=== PATIENT | female | born 1950 | race Caucasian/White ===

== ENCOUNTER 2016-09-10 06:14 | Observation (INO) | payer MEDICARE, OTHER ==
[2016-09-09 15:46] LABS: BASOPHILS 0.8 %; BASOPHILS ABSOLUTE 0.05 10/3/uL (0.0-0.16); EOSINOPHILS 3.5 %; EOSINOPHILS ABSOLUTE 0.21 10/3/uL (0.0-0.53); HEMATOCRIT 40.9 % (36.0-48.0); HEMOGLOBIN 13.2 g/dL (12.0-16.0); IMMATURE GRANULOCYTES 0.5 %; IMMATURE GRANULOCYTES ABSOLUTE 0.03 10/3/uL (0.0-0.11); LYMPHOCYTES 21.1 %; LYMPHOCYTES ABSOLUTE 1.26 10/3/uL (0.67-4.30); MEAN CORPUS HGB CONC 32.3 g/dL (32.0-36.0); MEAN CORPUSCULAR HEMOGLOB 24.3 pg (26.0-34.0); MEAN CORPUSCULAR VOLUME 75.3 fL (80-100); MEAN PLATELET VOLUME 10.1 fL (9.2-13.0); MONOCYTES 10.2 %; MONOCYTES ABSOLUTE 0.61 10/3/uL (0.21-1.20); NEUTROPHILS 63.9 %; PLATELET COUNT 276 10/3/uL (150-400); RBC DISTRIBUTION WIDTH 16.3 % (12.0-16.0); RED CELL COUNT 5.43 10/6/uL (4.0-5.6)
[2016-09-09 15:52] LABS: MANUAL DIFF NO %
[2016-09-09 15:56] LABS: BUN (BLOOD UREA NITROGEN) 13 MG/DL (6-23); CALCIUM, SERUM 9.3 MG/DL (8.5-10.4); CHLORIDE, SERUM 107 MMOL/L (96-112); CO2 (CARBON DIOXIDE) 29 MMOL/L (24-34); CREATININE 0.91 MG/DL (0.55-1.02); GFR AFRICAN AMERICAN 76 ML/MIN (>=60); GFR NON AFRICAN AMERICAN 65 ML/MIN (>=60); GLUCOSE, SERUM 96 MG/DL (60-99); POTASSIUM, SERUM 4.5 MMOL/L (3.5-5.3); SODIUM, SERUM 143 MMOL/L (135-148)
--- NOTE | ~2016-09-10 | OP ---
Record Of Operation [facility] [address] [place]. [address] NAME: CHRIS DEVRIES : 48 STATUS : REG [facility]#: [id number] AGE: 66 ADM/REG DATE : 09/10/16 MR#: [id number] REPORT SERV DATE: 09/10/16 DICTATED BY: NAEL ESTRELLA DATE: 09/10/16 REPORT STATUS : Draft TRANSCRIBED BY: MODL DATE: 09/10/16 DATE OF PROCEDURE: 09/10/2016 PREOPERATIVE DIAGNOSIS: Ventral hernia. POSTOPERATIVE DIAGNOSIS: Ventral hernia. OPERATION PERFORMED: Laparoscopic ventral hernia repair with Bard Ventralight mesh. SURGEON: Nael Estrella M.D. ANESTHESIA: General. ESTIMATED BLOOD LOSS: Less than 20 mL. IV FLUIDS: Adequate. INDICATION FOR PROCEDURE: Ms Devries is a 66-year-old white female, who has had a history of a laparoscopic cholecystectomy. At the periumbilical trocar site, she developed a ventral hernia that has been symptomatic. She is brought to the operating room today for repair. DESCRIPTION OF OPERATION: After appropriate sedation, the patient was prepped and draped in proper sterile fashion. Skin and subcutaneous tissues of the left side of the abdominal wall were infiltrated with local anesthesia. A transverse incision was made in the abdominal wall, and a 10 mm Optiview trocar was used to enter the abdomen under direct visualization. The abdomen was insufflated to 15 mmHg. I then placed two left lower quadrant 5-mm trocars under direct visualization. She had adhesions to the abdominal wall including small bowel, these were carefully dissected down and mobilized away. She also had some omental adhesions. These were taken down. We then were able to visualize a 3 cm defect at the level just above the umbilicus. We then placed two right lateral 5 mm trocars to help with mobilization and visualization. We placed a piece of Bard 15 cm round Ventralight mesh into the abdomen. Sutures were placed at the 12 and 6 o'clock positions, and the mesh was brought out to the abdominal wall. We then circumferentially tacked using a secure strap to the abdominal wall. We then placed 0 Nurolon sutures at the 2, 4, 8, and 10 o'clock positions as well. This gave us good fixation to the fascia. The mesh laid nicely against the abdominal wall. We placed a few more tacks at the midportion of the mesh to help with apposition. We then evaluated the small bowel. There was no evidence of injury. There was no evidence of bleeding from the abdominal wall or the omentum that had been mobilized. We removed our trocars under direct visualization. There was no evidence of bleeding from the abdominal wall. The abdomen was then desufflated. The skin was closed using interrupted 3-0 Vicryl sutures. Steri-Strips and dressings were then placed. The patient was taken to the recovery room in satisfactory condition. /MODL Record Of Operation [facility] [address] [place]. [address] NAME: CHRIS DEVRIES : 48 STATUS : REG [facility]#: [id number] AGE: 66 ADM/REG DATE : 09/10/16 MR#: [id number] REPORT SERV DATE: 09/10/16 DICTATED BY: NAEL ESTRELLA DATE: 09/10/16 REPORT STATUS : Draft TRANSCRIBED BY: MODL DATE: 09/10/16 Nael Estrella M.D. / [id number] CC: Yaniv Lomeli III, D.O.
[~2016-09-10 06:14] MED LIST: ADVIL PO; ALEVE220 MG PO; C5 PO; EXCEDRIN EXTRA1 EACH PO; HARD NAILS PO; MCZ25 PO; MIRALAX POWDER1 PKT PO; PCET PO; PRINZIDE1 TAB PO; ZESTORETIC1 TAB PO
[2016-09-11] MEDS ORDERED: PCET PO (12:14)
== END 2016-09-11 13:28 | disposition home or self-care (01) ==
LOC: SDC 06:14 → 5SO 12:51
PROVIDERS: Specialist
PROC: 0WUF4JZ Supplement Abdominal Wall with Synthetic Substitute, Percutaneous Endoscopic Approach (ICD-10-PCS; principal; 2016-09-10 07:45)
DX: K43.9 Ventral hernia without obstruction or gangrene (principal); K42.9 Umbilical hernia without obstruction or gangrene; I10 Essential (primary) hypertension; K21.9 Gastro-esophageal reflux disease without esophagitis; E66.9 Obesity, unspecified; Z68.42 Body mass index [BMI] 45.0-49.9, adult; Z88.0 Allergy status to penicillin; Z88.2 Allergy status to sulfonamides; Z90.710 Acquired absence of both cervix and uterus; Z98.1 Arthrodesis status; Z90.49 Acquired absence of other specified parts of digestive tract; Z98.890 Other specified postprocedural states; Z79.82 Long term (current) use of aspirin; Z79.899 Other long term (current) drug therapy
CPT/HCPCS: 36415; 80048; 85025; 87641; 93005; 96374; 96376; A9270-GY; C1781; C9113; G0378; J0690; J2250; J2405; J2710; J3010